=== PATIENT | male | born 2000 | race Caucasian/White ===

== ENCOUNTER 2021-08-10 18:01 | Emergency (ER) | payer OTHER ==
[~2021-08-10] VITALS: Ht 170.2 cm; Wt 69.1 kg
[2021-08-10 18:17] VITALS: BP 121/77
--- NOTE | 2021-08-10 19:24 | NUR ---
PT DISCHARGED BY
== END 2021-08-10 19:26 | disposition home or self-care (01) ==
LOC: ER 18:02
DX: S60.211A Contusion of right wrist, initial encounter (principal); S63.501A Unspecified sprain of right wrist, initial encounter; M25.531 Pain in right wrist; E11.9 Type 2 diabetes mellitus without complications; W19.XXXA Unspecified fall, initial encounter; Y93.89 Activity, other specified; Y92.89 Other specified places as the place of occurrence of the external cause; Y99.8 Other external cause status
CPT/HCPCS: 29125; 73110; 99283